=== PATIENT | female | born 1980 | race Caucasian/White ===

== ENCOUNTER 2018-09-14 06:11 | Day surgery (SDC) | payer SELFPAY ==
[2018-09-14] VITALS (7 sets, daily range): BP systolic 113–148; BP diastolic 69–95; PULSE 87–93; RESP 14–16; TEMP 36.2–36.6; O2SAT 92–99; BMI 39.9
--- NOTE | 2018-09-14 06:21 | EKG12_ITS ---
Test Reason : PREOP Blood Pressure : / mmHG Vent. Rate : 091 BPM Atrial Rate : 091 BPM P-R Int : 152 ms QRS Dur : 086 ms QT Int : 374 ms P-R-T Axes : 035 006 042 degrees QTc Int : 460 ms Normal sinus rhythm Normal ECG Confirmed by ERNA STOCK, GREGORIO ([id number]), editor newspaper HOLA CM ([id number]) on 09/15/2018 1:59:07 PM Referred By: Ju Whitfield Confirmed By:GREGORIO UMANZOR MD
[2018-09-14 06:36] LABS: Hematocrit 41.7 % (37-47); Mean Corp Hgb Conc 33.6 g/gl (32-36); Mean Corpuscular Hgb 29.2 pg (27.0-32.0); Mean Corpuscular Volume 87.1 fL (81-99); Mean Platelet Vol. 10.5 fl (6.2-12.0); Platelet Count 302 K/mm3 (150-450); RBC Distribution Width CV 13.4 % (11.6-14.6); RBC Distribution Width SD 41.6 fl (35.1-43.9); Red Blood Count 4.79 M/mm3 (4.2-5.4); Scan Indicated on CBC? Y/N NO; White Blood Count 10.2 K/mm3 (4.4-11.0)
[2018-09-14] MEDS: Cefazolin 2 GM in 0.9% Normal Saline 100 ML IV (08:10)
--- NOTE | 2018-09-14 08:10 | RAD_ITS ---
STUDY: X-RAY - RIGHT ANKLE REASON FOR EXAM: Female, 37 years old. ORIF of the right ankle. TECHNIQUE: 3 views and 5 images of the ankle were obtained intraoperatively. COMPARISON: None. FINDINGS: Intraoperative imaging provided for open reduction and internal fixation of a distal fibular fracture utilizing screws and sideplate fixation device. 2 screws are seen at the distal tibiofibular joint. RAD/Ankle min 3 Views IMPRESSION: Status post ORIF of the distal fibular fracture. There is good alignment. Electronically Signed: Gerson Contreras MD at 10:38 EST Tel [phone], Service support ,
--- NOTE | 2018-09-14 10:47 | OP.PN_ITS ---
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
--- NOTE | 2018-09-14 10:48 | PCM.DC.ORTHO ---
Discharge Activity: May Not Drive, May not drive while taking narcotic pain medications., May Not Shower, Use Walker, Use Crutches Ice area for (Minutes): 20 - behind right knee 20 minutes of each hour while awake Weight Bearing Status: No weight bearing Keep extremity elevated above heart level: Operative Extremity Call your doctor if your incision/area has: Sudden Increased Bleeding Call your doctor if you observe: Fever of 101 or Higher, Shortness of breath, Dizziness, Chest pain, Increased palpitations (irregular heartbeat), Calf discomfort Cleanse incision/area with: Keep Dressing Clean & Dry Allergies/Adverse Reactions: Allergies Sulfa (Sulfonamide Antibiotics) Allergy (Verified 09/10/18 11:27) Unknown Medications to take at Discharge Thyroid [[place] Thyroid] 115 mg PO DAILY 01/23/16 Citalopram [Celexa] 40 mg PO DAILY 09/10/18 Ibuprofen 200 mg PO PRN PRN 09/10/18 Omeprazole [Prilosec] 20 mg PO PRN PRN 09/10/18 Hydrocodone/Acetaminophen [Hydrocodon-Acetaminophen 5-325] 1 ea PO Q6H PRN PRN 7 Days #28 tab 09/14/18 The following prescriptions were given: Hydrocodone/Acetaminophen [Hydrocodon-Acetaminophen 5-325] 1 ea PO Q6H PRN PRN 7 Days #28 tab PRN Reason: Pain Primary Care Physician: Chepe Viramontes [Primary Care Provider] - Please follow up with your Primary Care Physician in: Please see PCP regarding TSH level within 10-14 days Test Results: Test results from this visit will be discussed in further detail at your follow-up appointment, if applicable. Proposed Discharge Date: 09/14/18
[2018-09-14] MEDS: Ketorolac 30 MG/ML Syringe IV (10:50)
--- NOTE | 2018-09-14 10:52 | DCINST_ITS ---
Discharge Activity: May Not Drive, May not drive while taking narcotic pain medications., May Not Shower, Use Walker, Use Crutches Ice area for (Minutes): 20 - behind right knee 20 minutes of each hour while awake Weight Bearing Status: No weight bearing Keep extremity elevated above heart level: Operative Extremity Call your doctor if your incision/area has: Sudden Increased Bleeding Call your doctor if you observe: Fever of 101 or Higher, Shortness of breath, Dizziness, Chest pain, Increased palpitations (irregular heartbeat), Calf discomfort Cleanse incision/area with: Keep Dressing Clean & Dry Allergies/Adverse Reactions: Allergies Sulfa (Sulfonamide Antibiotics) Allergy (Verified 09/10/18 11:27) Unknown Medications to take at Discharge Thyroid [[place] Thyroid] 115 mg PO DAILY 01/23/16 Citalopram [Celexa] 40 mg PO DAILY 09/10/18 Ibuprofen 200 mg PO PRN PRN 09/10/18 Omeprazole [Prilosec] 20 mg PO PRN PRN 09/10/18 Hydrocodone/Acetaminophen [Hydrocodon-Acetaminophen 5-325] 1 ea PO Q6H PRN PRN 7 Days #28 tab 09/14/18 The following prescriptions were given: Hydrocodone/Acetaminophen [Hydrocodon-Acetaminophen 5-325] 1 ea PO Q6H PRN PRN 7 Days #28 tab PRN Reason: Pain Primary Care Physician: Chepe Viramontes [Primary Care Provider] - Please follow up with your Primary Care Physician in: Please see PCP regarding TSH level within 10-14 days Test Results: Test results from this visit will be discussed in further detail at your follow- up appointment, if applicable. Proposed Discharge Date: 09/14/18
--- NOTE | 2018-09-14 11:00 | RAD_ITS ---
STUDY: X-RAY - RIGHT ANKLE REASON FOR EXAM: Female, 37 years old. Postop evaluation. TECHNIQUE: 3 view(s) of the ankle. COMPARISON: Comparison is made with prior intraoperative images performed earlier today. FINDINGS: The patient is status post open reduction internal fixation of the distal fibular fracture utilizing screw and side plate fixation device. There is good alignment. 2 screws are seen transfixing the distal tibial fibular joint. Normal visualized talus and calcaneus. The visualized subtalar, talonavicular, calcaneocuboid and tarsal articulations are normal. Postoperative soft tissue changes. RAD/Ankle min 3 Views IMPRESSION: Status post ORIF of the distal fibular fracture. There is good alignment. Electronically Signed: Gerson Contreras MD at 12:44 EST Tel [phone], Service support ,
--- NOTE | 2018-09-16 15:43 | OP.PCM_ITS ---
Report of Operation Date of Procedure: 09/14/18 Pre-Operative Diagnosis: R distal fibula fracture with syndesmotic disruption Post-Operative Diagnosis: same Surgery/Procedure Performed:: R ORIF distal fibula with syndesmotic fixation Description of Surgical Findings:: see dictation strip catcher: Eliza Salgado Type of Anesthesia:: General/Regional Specimen's removed: none Estimated Blood Loss (mL): minimal Description of Procedure: Indications: Pt is a 37 yo F who injured her R ankle after a fall. She presented to the [facility] for evaluation and xray on the same day. She was then seen in my clinic where stress gravity views revealed an increased medial clear space and syndesmotic gapping in addition to the spiral fracture of her distal fibula. Smoking cessation was strongly recommended. She would like surgical intervention today. All risks, complications, and alternatives were discussed with the patient, and the patient signed an informed consent. No guarantees were given. Procedure: On 09/14/2018, Nola Reza was visually and verbally identified in the preoperative holding area. The consent form was again reviewed with the patient, as were all risks, complications, and alternatives and the patient wished to proceed with the proposed surgery. The right ankle was marked as the correct operative extremity. The patient was brought to the operating room and placed on the operating room table in the lazy lateral position. After induction by anesthesia, a surgical time out was performed and all present were in agreement. a pneumatic thigh tourniquet was then placed. At this time the right lower extremity was prepped and draped in the usual sterile fashion. after exsanguination with an esmarch the tourniquet was inflated to 300 mmHg. At this time attention was directed to the right lateral ankle. Using a #15 blade a curvilinear incision was made over the fracture site. The incision was bluntly carried deep through the subcutaneous tissues with careful attention paid to all bleeders, which were clamped and tied or bovied as necessary. All vital neurovascular structures were retracted. The peroneal tendons were retracted. Dissection was carried to the level of the fracture which was visualized. The fracture was debrided of any impinging hematoma and soft tissue. Using a combination of k wire and bone reduction clamps the fracture site was reduced and the fibula brought out to length. This was confirmed on intraoperative fluoroscopy as well as directly visualized. A [place] 2.7mm lag screw was then placed perpendicular to the fracture line per AO technique. Good reduction of the fracture was noted and the length and position of the screw was confirmed on intraoperative fluoroscopy. At this time a 2nd lag screw was placed just proximal to this first screw, along the spiral fracture and perpendicular to the fracture, per AO technique. A [place] [employer] plate was then placed with a combination of nonlocking and locking screws. Plate position and length along with screw position and length were all confirmed via intraoperative fluoroscopy. At this time I performed an external rotation and cotton hook test to evaluate the syndesmosis and deltoids. Syndesmotic gapping and increased medial clear space was noted on intraoperative fluoroscopy. I then placed malleolar reduction clamp on the ankle. A transyndesmotic screw was then placed per AO technique outside of the plate, parallel to the tibiotalar joint. After removing the reduction clamps, I repeated the stress views and felt a second screw would be needed. I replaced the reduction clamp. To do this I needed to remove the proximal lag screw of the fibular fracture and good reduction of the fracture was maintained. A second transyndesmotic screw was then placed proximal to the the first and again parallel to the tibiotalar joint, per AO technique. Reduction clamps were then removed and stress views repeated. There was no syndesmotic gapping and the medial clear space was within normal limits, therefore, I did not feel I needed to repair the deltoid ligament. The incision site was then flushed with copious amounts of normal sterile saline and closure was initiated. 2.0 vicryl was used for deep closure, 3.0 vicryl for subcutaneous tissues and 3.0 prolene for skin. Adaptic and dry, sterile dressings were applied. a multilayer compressive wrap was applied along with a well padded posterior splint. Total tourniquet time was 91 minutes with immediate capillary refill noted to a ll digits upon deflation. Intra operative fluoroscopy was utilized throughout the case, > 1 hour, to aid in visualization and confirmation of fracture reduction and screw and plate fixations. Interpretation of the images was vital to my decision making process. The patient tolerated the procedure and anesthesia well. The patient was then transported to the postanesthesia care unit by a member of the anesthesia team and myself with all vital signs stable and neurovascular status of the right lower extremity equal to pre-operative levels. A RLE block was performed by anesthesia for pain control. At the end of the case all sponge, needle and instrument counts were found to be correct. Grafts/Implants Used: [place] V[employer] plate and screws - Complications none - Admit VTE Documentation VTE Present on Admission: No VTE Mechan Device Prophylaxis: SCD's, Knee High DONYA Hose VTE Pharm Prophylaxis ordered?: Yes
--- OUTSIDE RECORDS SUMMARY | 2018-11-16 06:52 | XMS RPT_ITS ---
:1980 Author Organization OHIP Support Name Relationship Address Phone MARIO SALDANA Unavailable [address] + [place] [address] [facility] Unavailable [address] + [place] [address] SALDANAYONNYW Unavailable [address] + [place], [place] [phone] SHANA MARIO Unavailable [address] Unavailable [place], [place] [phone] NOT GIVEN Unavailable Un[place] [address] MARIO SALDANA Unavailable [address] + [place], [place] [phone] MARIO SALDANA Unavailable [address] Unavailable [place], [place] [phone] NOT GIVEN Unavailable Un[place] [address] MARIO SALDANA Unavailable [address] + [place], [place] [phone] MARIO SALDANA Unavailable [address] Unavailable [place], [place] [phone] NOT GIVEN Unavailable Un[place] [address] MARIO SALDANA Unavailable [address] + [place], [place] [phone] MARIO SALDANA Unavailable [address] Unavailable [place], [place] [phone] NOT GIVEN Unavailable [place] [address] Care Team Providers Name Role Phone HEMA LOCKE Admitting Unavailable HEMA LOCKE Attending Unavailable HEMA LOCKE Primary Care Unavailable LANI THACKER Consulting Unavailable PROVIDER, UNKNOWN Consulting Unavailable PROVIDER, UNKNOWN Consulting Unavailable PROVIDER, UNKNOWN Consulting Unavailable HEMA LOCKE Admitting Unavailable HEMA LOCKE Attending Unavailable HEMA LOCKE Primary Care Unavailable LANI THACKER Consulting Unavailable PROVIDER, UNKNOWN Consulting Unavailable PROVIDER, UNKNOWN Consulting Unavailable PROVIDER, UNKNOWN Consulting Unavailable LOCKE, HEMA J Admitting Unavailable LOCKE, HEMA J Attending Unavailable LOCKE, HEMA J Primary Care Unavailable VACCARIELLO, LANI Consulting Unavailable PROVIDER, UNKNOWN Consulting Unavailable PROVIDER, UNKNOWN Consulting Unavailable PROVIDER, UNKNOWN Consulting Unavailable ROBINSON, DR MOY Almodovar Admitting Unavailable BOWERS, DR MOY Almodovar Attending Unavailable VACCARIELLO, LANI Referring Unavailable ROBINSON, DR MOY Almodovar Primary Care Unavailable VACCARIELLO, LANI Consulting Unavailable PROVIDER, UNKNOWN Consulting Unavailable PROVIDER, UNKNOWN Consulting Unavailable PROVIDER, UNKNOWN Consulting Unavailable Ju Whitfield Attending Unavailable Ju Whitfield Referring Unavailable Vaccariello, Lani Primary Care Unavailable PROBLEMS PROBLEMS DATE TYPE CONDITION / CODE ATTENDING STATUS SOURCE 09/14/2018 Unknown G89.18 - Other acute Ju Whitfield Active [place] postprocedural pain [facility] / G89.18(ICD-10) Hospital Repository 07/01/2018 Principle Other specified LOCKE, Active Mannie [facility]omerene Diagnosis hypothyroidism / HEMA J [place] [address](ICD-10) Hospital Repository 07/01/2018 Admitting Other specified LOCKE, Active Mnanie Pomerene Diagnosis hypothyroidism / HEMA J [place] [address](ICD-10) Hospital Repository 02/11/2018 Principle Encounter for LOCKE, Active Mannie Pomerene Diagnosis screening for HEMA J [facility] diabetes mellitus / Hospital Z131(ICD-10) Repository 02/11/2018 Secondary Other specified LOCKE, Active Mannie Pomerene Diagnosis hypothyroidism / HEMA J [place] [id number](ICD-10) Hospital Repository 02/11/2018 Secondary Encounter for LOCKE, Active Mannie Pomerene Diagnosis screening for lipoid EHMA J [facility] disorders / [facility] P20894(ICD-10) Repository PROCEDURES PROCEDURES No Procedure Records FoundRESULTS RESULTS OPERATIVE REPORT Observed: 09/16/2018 Status: F Source: JAY 4:09 PM [facility] REPOSITORY [facility] Medical Records Department [address] [place] [address] Operative Report 09/16/18 1541 MR#: [id number] Acct: [id number] Name: DELMIS SALDANA Rep #: [id number] : 1980 37 From: Ju Whitfield DPHailey PCP: Lani Thacker MD Status: DEP [facility] [place] Location: [facility] Report of Operation Date of Procedure: 09/14/18 Pre-Operative Diagnosis: R distal fibula fracture with syndesmotic disruption Post-Operative Diagnosis: same Surgery/Procedure Performed:: R ORIF distal fibula with syndesmotic fixation Description of Surgical Findings:: see dictation hydrocrane operator: Eliza Salgado Type of Anesthesia:: General/Regional Specimen's removed: none Estimated Blood Loss (mL): minimal Description of Procedure: Indications: Pt is a 37 yo F who injured her R ankle after a fall. She presented to the [facility] for evaluation and xray on the same day. She was then seen in my clinic where stress gravity views revealed an increased medial clear space and syndesmotic gapping in addition to the spiral fracture of her distal fibula. Smoking cessation was strongly recommended. She would like surgical intervention today. All risks, complications, and alternatives were discussed with the patient, and the patient signed an informed consent. No guarantees were given. Procedure: On 09/14/2018, Delmis Saldana was visually and verbally identified in the preoperative holding area. The consent form was again reviewed with the patient, as were all risks, complications, and alternatives and the patient wished to proceed with the proposed surgery. The right ankle was marked as the correct operative extremity. The patient was brought to the operating room and placed on the operating room table in the lazy lateral position. After induction by anesthesia, a surgical time out was performed and all present were in agreement. a pneumatic thigh tourniquet was then placed. At this time the right lower extremity was prepped and draped in the usual sterile fashion. after exsanguination with an esmarch the tourniquet was inflated to 300 mmHg. At this time attention was directed to the right lateral ankle. Using a #15 blade a curvilinear incision was made over the fracture site. The incision was bluntly carried deep through the subcutaneous tissues with careful attention paid to all bleeders, which were clamped and tied or bovied as necessary. All vital neurovascular structures were retracted. The peroneal tendons were retracted. Dissection was carried to the level of the fracture which was visualized. The fracture was debrided of any impinging hematoma and soft tissue. Using a combination of k wire and bone reduction clamps the fracture site was reduced and the fibula brought out to length. This was confirmed on intraoperative fluoroscopy as well as directly visualized. A Joshua 2.7mm lag screw was then placed perpendicular to the fracture line per AO technique. Good reduction of the fracture was noted and the length and position of the screw was confirmed on intraoperative fluoroscopy. At this time a 2nd lag screw was placed just proximal to this first screw, along the spiral fracture and perpendicular to the fracture, per AO technique. A Lismore Variax plate was then placed with a combination of nonlocking and locking screws. Plate position and length along with screw position and length were all confirmed via intraoperative fluoroscopy. At this time I performed an external rotation and cotton hook test to evaluate the syndesmosis and deltoids. Syndesmotic gapping and increased medial clear space was noted on intraoperative fluoroscopy. I then placed malleolar reduction clamp on the ankle. A transyndesmotic screw was then placed per AO technique outside of the plate, parallel to the tibiotalar joint. After removing the reduction clamps, I repeated the stress views and felt a second screw would be needed. I replaced the reduction clamp. To do this I needed to remove the proximal lag screw of the fibular fracture and good reduction of the fracture was maintained. A second transyndesmotic screw was then placed proximal to the the first and again parallel to the tibiotalar joint, per AO technique. Reduction clamps were then removed and stress views repeated. There was no syndesmotic gapping and the medial clear space was within normal limits, therefore, I did not feel I needed to repair the deltoid ligament. The incision site was then flushed with copious amounts of normal sterile saline and closure was initiated. 2.0 vicryl was used for deep closure, 3.0 vicryl for subcutaneous tissues and 3.0 prolene for skin. Adaptic and dry, sterile dressings were applied. a multilayer compressive wrap was applied along with a well padded posterior splint. Total tourniquet time was 91 minutes with immediate capillary refill noted to all digits upon deflation. Intra operative fluoroscopy was utilized throughout the case, > 1 hour, to aid in visualization and confirmation of fracture reduction and screw and plate fixations. Interpretation of the images was vital to my decision making process. The patient tolerated the procedure and anesthesia well. The patient was then transported to the postanesthesia care unit by a member of the anesthesia team and myself with all vital signs stable and neurovascular status of the right lower extremity equal to pre-operative levels. A RLE block was performed by anesthesia for pain control. At the end of the case all sponge, needle and instrument counts were found to be correct. Grafts/Implants Used: Joshua Variax plate and screws - Complications none - Admit VTE Documentation VTE Present on Admission: No VTE Mechan Device Prophylaxis: SCD's, Knee High DONYA Hose VTE Pharm Prophylaxis ordered?: Yes 09/16/18 1609 <Electronically signed by Ju Whitfield DPM> Date Ju Whitfield DPM CC: KAY Whitfield; Lani Thacker MD Signed 12 LEAD ELECTROCARDIOGRAM Observed: 09/15/2018 Status: F Source: [place] 1:59 PM [facility] REPOSITORY [facility] Cardiovascular Services [address] [place] [address] 12 Lead EKG 09/14/18 0642 MR#: [id number] Acct: [id number] Name: DELMIS SALDANA Rep #: [id number] : 1980 37 From: Dony Umanzor MD Attending Dr: Ju Whitfield DPM Status: [facility] Ordering Dr: Ju Whitfield DPM Date: 09/14/18 [place] [facility] Sex: F C Admitted: Test Reason : PREOP Blood Pressure : / mmHG Vent. Rate : 091 BPM Atrial Rate : 091 BPM P-R Int : 152 ms QRS Dur : 086 ms QT Int : 374 ms P-R-T Axes : 035 006 042 degrees QTc Int : 460 ms Normal sinus rhythm Normal ECG Confirmed by ERNA STOCK, DONY ([id number]), book or script editor HOLA CM ([id number]) on 09/15/2018 1:59:07 PM Referred By: Ju Whitfield Confirmed By:DONY UMANZOR MD 09/15/18 9187 Date Dony Umanzor MD CC: KAY Whitfield; Lani Thacker MD Signed DISCHARGE INSTRUCTION Observed: 09/14/2018 Status: F Source: [place] 10:53 AM [facility] REPOSITORY [facility] Medical Records Department [address] [place] [address] Instructions for Home/Discharge Instructions 09/14/18 1048 MR#: [id number] Acct: [id number] Name: DELMIS SALDANA Rep #: [id number] : 1980 37 From: Ju Whitfield DPM PCP: Lani Thacker MD Status: REG [facility] Discharge Activity: May Not Drive, May not drive while taking narcotic pain medications., May Not Shower, Use Walker, Use Crutches Ice area for (Minutes): 20 - behind right knee 20 minutes of each hour while awake Weight Bearing Status: No weight bearing Keep extremity elevated above heart level: Operative Extremity Call your doctor if your incision/area has: Sudden Increased Bleeding Call your doctor if you observe: Fever of 101 or Higher, Shortness of breath, Dizziness, Chest pain, Increased palpitations (irregular heartbeat), Calf discomfort Cleanse incision/area with: Keep Dressing Clean AND Dry Allergies/Adverse Reactions: Allergies Sulfa (Sulfonamide Antibiotics) Allergy (Verified 09/10/18 11:27) Unknown Medications to take at Discharge Thyroid [[place] Thyroid] 115 mg PO DAILY 01/23/16 Citalopram [Celexa] 40 mg PO DAILY 09/10/18 Ibuprofen 200 mg PO PRN PRN 09/10/18 Omeprazole [Prilosec] 20 mg PO PRN PRN 09/10/18 Hydrocodone/Acetaminophen [Hydrocodon-Acetaminophen 5-325] 1 ea PO Q6H PRN PRN 7 Days #28 tab 09/14/18 The following prescriptions were given: Hydrocodone/Acetaminophen [Hydrocodon-Acetaminophen 5-325] 1 ea PO Q6H PRN PRN 7 Days #28 tab PRN Reason: Pain Primary Care Physician: Lani Thacker [Primary Care Provider] - Please follow up with your Primary Care Physician in: Please see PCP regarding TSH level within 10-14 days Test Results: Test results from this visit will be discussed in further detail at your follow-up appointment, if applicable. Proposed Discharge Date: 09/14/18 09/14/18 1053 <Electronically signed by Ju Whitfield DPM> Date uJ Whitfield DPM CC: Lani Thacker MD Signed ANKLE MIN 3 VIEWS Observed: 09/14/2018 Status: F Source: [place] 10:46 AM [facility] REPOSITORY [facility] Imaging Services [address] [place] [address] Ankle min 3 Views MR#: [id number] Acct: [id number] Name: DELMIS SALDANA Rep #: [id number] : 1980 F 37 From: Gerson Contreras MD PCP: Lani Thacker MD Status: REG [facility] Study: Ankle min 3 Views Date of Exam: 09/14/18 Exam# [id number] Ordering Dr: Ju Whitfield DPM STUDY: X-RAY - RIGHT ANKLE REASON FOR EXAM: Female, 37 years old. Postop evaluation. TECHNIQUE: 3 view(s) of the ankle. COMPARISON: Comparison is made with prior intraoperative images performed earlier today. FINDINGS: The patient is status post open reduction internal fixation of the distal fibular fracture utilizing screw and side plate fixation device. There is good alignment. 2 screws are seen transfixing the distal tibial fibular joint. Normal visualized talus and calcaneus. The visualized subtalar, talonavicular, calcaneocuboid and tarsal articulations are normal. Postoperative soft tissue changes. RAD/Ankle min 3 Views IMPRESSION: Status post ORIF of the distal fibular fracture. There is good alignment. Electronically Signed: Gerson Contreras MD at 12:44 EST Tel [phone], Service support , CC: KAY Whitfield; Lani Thacker MD [employer]tron[employer] Technician: Signed CBC-COMPLETE BLOOD CNT Collected: 09/14/2018 Status: F Source: JAY NO DIFF 6:30 AM [facility] REPOSITORY TYPE CODE TESTS RESULT OUT OF RANGE REFERENCE UNITS LAB L100.1000 4.4-11.0 K/mm3 Normal WBC 10.2 LAB L100.1200 4.2-5.4 M/mm3 Normal RBC 4.79 LAB L100.1300 12.0-15.0 g/dl Normal HGB 14.0 LAB L100.1400 37-47 % Normal HCT 41.7 LAB L100.1500 81-99 fL Normal MCV 87.1 LAB L100.1600 27.0-32.0 pg Normal MCH 29.2 LAB L100.1700 32-36 g/gl Normal MCHC 33.6 LAB L100.1810 11.6-14.6 % Normal RDW CV 13.4 LAB L100.1820 35.1-43.9 fl Normal RDW SD 41.6 LAB L100.1900 150-450 K/mm3 Normal PLT 302 LAB L100.2000 6.2-12.0 fl Normal MPV 10.5 Performed By: #### L100.0500, L501.9520 #### [facility] [address] [facility] [place], [address] THYROID STIM HORMONE Collected: 09/14/2018 Status: F Source: JAY (TSH) 6:30 AM [facility] REPOSITORY TYPE CODE TESTS RESULT OUT OF RANGE REFERENCE UNITS LAB L501.9520 0.358-3.74 uIU/mL High TSH 10.70 Performed By: #### L100.0500, L501.9520 #### [facility] [address] [facility] [place], [address] ANKLE MIN 3 VIEWS Observed: 09/14/2018 Status: F Source: [place] 12:10 AM [facility] REPOSITORY [facility] Imaging Services [address] [facility] [place] [address] Ankle min 3 Views MR#: [id number] Acct: [id number] Name: SALDANADELMIS Rep #: [id number] : 1980 F 37 From: Gerson Contreras MD PCP: Lani Thacker MD Status: REG [facility] Study: Ankle min 3 Views Date of Exam: 09/14/18 Exam# [id number] Ordering Dr: Ju Whitfield DPM STUDY: X-RAY - RIGHT ANKLE REASON FOR EXAM: Female, 37 years old. ORIF of the right ankle. TECHNIQUE: 3 views and 5 images of the ankle were obtained intraoperatively. COMPARISON: None. FINDINGS: Intraoperative imaging provided for open reduction and internal fixation of a distal fibular fracture utilizing screws and sideplate fixation device. 2 screws are seen at the distal tibiofibular joint. RAD/Ankle min 3 Views IMPRESSION: Status post ORIF of the distal fibular fracture. There is good alignment. Electronically Signed: Gerson Contreras MD at 10:38 EST Tel [phone], Service support , CC: KAY Whitfield; Lani Thacker MD [employer]tronics Technician: Signed ANKLE COMPLETE RT Observed: 09/05/2018 Status: F Source: [facility] 10:47 AM [place] [address] Patient: DELMIS SALDANA Phone#: : 1980 Age: 37 Gender: F Pt. Type: ER Account: [id number] Location: [facility] Ordering: MOY BOWERS Exam Date: 09/05/2018/10:36 Family Phys: LANI THACKER Charge Code: [id number] Physician: [place] Order #: [id number] DLP Dose#: PROCEDURE: X-RAY ANKLE COMPLETE RT MIN 3 VIEWS COMPARISON: None. INDICATIONS: Injury. FINDINGS: BONES: There is a comminuted spiral fracture of the distal fibula. The there is mild posterior angulation the distal fracture fragment. The tibiotalar articulation is maintained. SOFT TISSUES: There is soft tissue swelling overlying the distal fragment. EFFUSION: None visible. OTHER: Negative. CONCLUSION: 1. Comminuted spiral fracture of the distal fibula. Mild posterior angulation of the distal fracture fragment. Dictated by: Gretel Gary MD on 09/05/2018 at 12:47 Approved by: Gretel Gary MD on 09/05/2018 at 12:47 EMERGENCY REPORT Observed: 09/05/2018 Status: F Source: [facility] 10:23 AM [facility] REPORT NAME ACCOUNT SEX AGE ADMIT DISCHARGE PT MED. RECORD# NUMBER DATE DATE TYPE SHANA [id number] F 37 09/05/18 3 DELMIS Man 3686 ROOM: ER DATE OF : 1980 DICTATING PHYSICIAN: Moy Bowers CHIEF COMPLAINT: Right ankle injury. HISTORY OF PRESENT ILLNESS: The patient states that she slipped on some snow and ice and fell. She states that she heard a pop at her right ankle and was unable to weight bear on it since. She is complaining of pain, mainly over the lateral aspect of the right ankle. No other injuries or complaints. No pain at the knee. PAST MEDICAL HISTORY: Significant for thyroiditis. PAST SURGICAL HISTORY: Has had previous carpal tunnel surgery. MEDICATIONS: Per medication reconciliation list. ALLERGIES: Sulfa. SOCIAL HISTORY: Patient smokes several cigarettes a day. Drinks alcohol rarely. PHYSICAL EXAMINATION: A 37-year-old, heavy built female, alert and appropriate. Patient does not appear toxic. Skin is warm and dry. Vital signs essentially all normal as noted on the chart. Examination is focused to the right lower extremity. No obvious deformity noted to the lower extremity but she does have noticeable soft tissue swelling and some hematoma formation over the lateral malleolus at the distal fibula. She has fairly marked tenderness over the lateral malleolus. There is no appreciable medial ankle tenderness or swelling. No midfoot or toe tenderness. No tenderness to the knee area. Skin is intact. Normal neurovascular examination. DIAGNOSTIC DATA: Patient had right ankle x-ray, which shows a nondisplaced oblique fracture to the distal fibula. EMERGENCY DEPARTMENT COURSE AND TREATMENT: She was placed in a padded Ortho-Glass posterior splint with a wrap around sugar tong component as well. Given crutches to help with ambulation. Ice and elevation recommended. Percocet for pain. She is to follow up with Orthopedics within the next several days for further evaluation and management. Dictated By: Moy Bowers MD Page 1 of 2 DELMIS SALDANA [facility] Emergency Room Report 09/05/18 11:09 JOB #: [id number] Transcribed By: trice 09/05/18 11:25 Electronically signed by: GRECIA Bowers M.D. 09/08/18 07:09 Page 2 of 2 DELMIS SALDANA Emergency Room Report US THYROID Observed: 07/01/2018 Status: F [facility]: [facility] 11:21 AM [place] [address] Patient: DELMIS SALDANA. Phone#: : 1980 Age: 37 Gender: F Pt. Type: Out Account: [id number] Location: 05 Ordering: HEMA LOCKE Exam Date: 07/01/2018/10:57 Family Phys: LANI THACKER Charge Code: [id number] Physician: [place] Order #: [id number] DLP Dose#: PROCEDURE: THYROID ULTRASOUND COMPARISON: [facility], [place], THYROID, 06/25/2017, 9:39. INDICATIONS: Hypothyroidism TECHNIQUE: High-resolution ultrasound was performed of the thyroid gland. FINDINGS: RIGHT LOBE: There is a small cyst in the right lobe, not significantly changed compared to prior. The thyroid is diffusely heterogeneous. No visible mass, calcification, or enlargement. Right lobe measures 4.1 x 0.9 x 1.3 cm, with a volume of 2.3 mL. LEFT LOBE: Heterogeneous echogenicity of the thyroid. No visible mass, cyst, calcification, or enlargement. Left lobe measures 4.1 x 0.9 x 1.6 cm, with a volume of 2.8 mL. The small nodules seen on the comparison study is not present on the current exam. ISTHMUS: Normal. No visible mass, cyst, calcification, enlargement, or abnormal echotexture. Isthmus measures 0.3 cm. OTHER: None. CONCLUSION: 1. Small heterogeneous appearance of the thyroid. Dictated by: Gretel Gary MD on 07/01/2018 at 12:40 Approved by: Gretel Gary MD on 07/01/2018 at 12:40 CMP WITH EGFR Collected: 02/11/2018 Status: F Source: [facility] 7:43 AM [facility] REPOSITORY TYPE CODE TESTS RESULT OUT OF RANGE REFERENCE UNITS LAB CMP with eGFR(LOINC) CMP with eGFR Result Comment: COMPREHENSIVE METABOLIC PANEL LAB SODIUM(LOINC) 136 - 145 mmol/l SODIUM Low 131 LAB POTASSIUM(LOINC) 3.5 - 5.1 mmol/L POTASSIUM 3.8 LAB CHLORIDE(LOINC) 98 - 107 mmol/L CHLORIDE 107 LAB CO2(LOINC) 21.0 - mmol/L 31.0 CO2 22.8 LAB GLUCOSE(LOINC) 74 - 106 mg/dl GLUCOSE 98 LAB BUN(LOINC) 6 - 20 mg/dl BUN 11 LAB CREATININE(LOINC) 0.6 - 1.2 mg/dl CREATININE 0.8 LAB AST/SGOT(LOINC) 13 - 39 U/L AST/SGOT 15 LAB ALK PHOS(LOINC) 38 - 126 U/L ALK PHOS 62 LAB CALCIUM(LOINC) 8.6 - mg/dl 10.2 CALCIUM 8.9 LAB TOTAL PROTEIN(LOINC) 6.4 - 8.3 g/dl TOTAL PROTEIN 7.1 LAB ALBUMIN(LOINC) 3.4 - 4.8 g/dL ALBUMIN 4.0 LAB GLOBULIN(LOINC) 1.5 - 3.8 G/DL GLOBULIN 3.1 LAB A/G RATIO(LOINC) 0.9 - 1.6 A/G RATIO 1.3 LAB TOTAL BILI(LOINC) 0.0 - 1.5 mg/dl TOTAL BILI 0.4 LAB B/C RATIO(LOINC) 0 - 30 ratio B/C RATIO 14 LAB ALT/SGPT(LOINC) 8 - 35 U/L ALT/SGPT 12 LAB ANION GAP(LOINC) 10 - 20 mmol/L ANION Low GAP 5 LAB AGE(LOINC) years AGE 37 LAB eGFR(LOINC) 60 - 999 ML/MINUTE eGFR >60 LAB eGFR(AA)(LOINC) 60 - 999 ML/MINUTE eGFR(AA) >60 Result Comment: ACCORDING TO THE NATIONAL KIDNEY DISEASE EDUCATION PROGRAM(NKDE), A NORMAL eGFR IS A VALUE GREATER THAN OR EQUAL TO 60 ML/MIN/1.73 SQ METERS. CHRONIC KIDNEY DISEASE: <60mL/MIN/1.73 SQ METERS KIDNEY FAILURE: <15mL/MIN/1.73 SQ METERS THIS TEST SHOULD ONLY BE USED FOR PATIENTS 18 YEARS OF AGE AND OLDER. Performed By: #### [id number] #### [place] [address] LIPID PROFILE Collected: 02/11/2018 Status: F Source: [facility] 7:43 [facility] REPOSITORY TYPE CODE TESTS RESULT OUT OF REFERENCE UNITS RANGE LAB LIPID PROFILE(LOIN C) LIPID PROFILE Result Comment: LIPID PROFILE LAB TRIGLYCERIDE(LOINC) 0 - 150 mg/dl TRIGLYCERIDE 124 LAB CHOLESTEROL(LOINC) 0 - 200 mg/dl CHOLESTEROL 188 LAB HDL(LOINC) 40 - 60 mg/dl HDL Low 39 LAB CHOL/HDL(LOINC) 0.0 - 5.0 CHOL/HDL 4.8 LAB LDL(LOINC) 0 - 129 mg/dl LDL 124 Performed By: #### [id number] #### [place] [address] TSH Collected: 02/11/2018 Status: F Source: [facility] 7:43 [facility] REPOSITORY TYPE CODE TESTS RESULT OUT OF RANGE REFERENCE UNITS LAB TSH(LOINC) 0.34 - 5.60 uIU/ml TSH 1.98 Performed By: #### [id number] #### [place] [address] ALLERGIES ALLERGIES DATE TYPE / CODE NAME / CODE REACTION SEVERITY SOURCE 09/10/[address] [facility] Allergy/4160 (Sulfonamide Hospital 47399(SNOMED Antibiotics)/ Repository CT) [id number](RX NORM) Drug SULFA Moderate [facility] Allergy/4160 (sulfonamide) ([facility] [address](SNOMED /[id number](RXN Modifier) Repository CT) ORM) (Qualifier Value) ENCOUNTERS ENCOUNTERS ADMIT/DISCHARGE ACCOUNT ADMITTING ENCOUNTER LOCATION SOURCE NUMBER CLASS 09/14/2018/ [id number] Ambulatory [place] 9 0 [facility] ing:SDCRoom: Repository [id number] 09/05/2018/ [id number] DR [facility]Y [facility] Buildin[facility] Mannie [place] 9 C oom: ERBed: [facility] Repository 07/01/2018/ [id number] [place] Rep[facility] 04/22/2018 [id number] [place] 02/11/2018/ [id number] [place] Ambulatory [facility] Repository PAYERS PAYERS ENCOUNTER GUARANTOR PAYER SUBSCRIBER SOURCE 09/14/2018 MARIO FELICIANO Primary NOT GIVENANGELIA HCRISTY Insurance:SELF PAY [facility] [id number]: [phone] Number: Effective Repository [phone] () Date:2018-09-09 07/01/2018 DELMIS L Primary DELMIS L Mannie Khan BERMANDOB: Insurance:RADIOLOGY BERMANDOB: [facility] [id number] [address] [facility] Number: [id number] [facility] Effective Date: [place] Repository [place], [place] [address]: [phone] ()
== END 2018-09-14 13:18 | disposition home or self-care (01) ==
LOC: SDC 06:12 → AC 06:13
PROVIDERS: Family Provider Family Medicine; PCP Family Medicine; Referring Provider Podiatrist Foot & Ankle Surgery; Visit Provider Podiatrist Foot & Ankle Surgery
DX: S82.62XA Displaced fracture of lateral malleolus of left fibula, initial encounter for closed fracture (principal); S93.431A Sprain of tibiofibular ligament of right ankle, initial encounter; R60.0 Localized edema; W00.0XXA Fall on same level due to ice and snow, initial encounter; Y93.9 Activity, unspecified; Y92.007 Garden or yard of unspecified non-institutional (private) residence as the place of occurrence of the external cause; Y99.9 Unspecified external cause status; Z87.891 Personal history of nicotine dependence; K21.9 Gastro-esophageal reflux disease without esophagitis; F41.9 Anxiety disorder, unspecified
CPT/HCPCS: 01480; 27792; 64445; 36415; 73610; 76000; 84443; 85027; 93005; C1713; J7120; J2405